=== PATIENT | female | born 1960 | race Asian ===

== ENCOUNTER 2016-12-07 12:13 | Emergency (ER) | payer OTHER ==
[~2016-12-07] VITALS: Ht 157.5 cm; Wt 56.8 kg
[2016-12-07 12:15] VITALS: TEMP 36.4; Ht 157.5 cm; Wt 56.8 kg
[2016-12-07] MEDS ORDERED: ADENOSINE IV SOLN 3 MG/ML 2 ML VIAL IV ONE (12:26)
[2016-12-07] MEDS ORDERED: ADENOSINE IV SOLN 3 MG/ML 2 ML VIAL IV STA ×2 (12:26)
[2016-12-07] MEDS ORDERED: SODIUM CHLORIDE 0.9% 1000ML 1,000 ML IV STA (12:26)
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
[2016-12-07 12:41] LABS: BASO % 0.8 %; BASO ABS # 0.03 K/uL (0-0.2); COMPLETE YES; EOS % 3.9 %; HEMATOCRIT 42.4 % (37-47); MEAN CELL VOLUME 89.6 fL (80-100); MEAN CORPUSCULAR HEMOGLOBIN 31.7 pg (25-34); MEAN CORPUSCULAR HGB CONC 35.4 g/dl (32-36); MEAN PLATELET VOLUME 10.9 fL (7.4-10.4); MONO % 14.1 %; NEUT % 34.2 %; PLATELET COUNT 194 K/uL (130-400); RED BLOOD COUNT 4.73 M/uL (4.2-5.4); WHITE BLOOD COUNT 3.62 K/uL (4.8-10.8)
[2016-12-07 12:43] VITALS: O2SAT 94
[2016-12-07 12:54] LABS: ALT/SGPT 34 U/L (12-78); AST/SGOT 22 U/L (15-37); BLOOD UREA NITROGEN 18 mg/dl (7-18); BUN/CREATININE RATIO 23.7 (10-20); CALCIUM 8.5 mg/dl (8.5-10.1); CARBON DIOXIDE 28 mmol/L (21-32); CHLORIDE 108 mmol/L (98-107); CREATININE 0.76 mg/dl (0.60-1.20); GLUCOSE 94 mg/dl (70-99); POTASSIUM 3.8 mmol/L (3.5-5.1); SODIUM 145 mmol/L (136-145)
[2016-12-07 13:00] LABS: ALKALINE PHOSPHATASE 87 U/L (45-117); CKMB/CK RATIO 0.8 (0-3.0)
--- NOTE | 2016-12-07 13:05 | DIAGNOSTIC IMAGING REPORT ---
CHEST ONE VIEW PORTABLE CLINICAL HISTORY: Chest pain. COMPARISON STUDY: Chest radiograph March 30, 2015. FINDINGS: Pacer pads overlie the chest. There is no pneumothorax or pleural effusion. No consolidation is identified. There is no evidence of pulmonary edema. Mild to moderate cardiomegaly is unchanged. IMPRESSION: No acute cardiopulmonary findings. Stable cardiomegaly. Electronically signed by: Gustavo Estrada M.D. 12/07/2016 1:03 PM Dictated Date/Time: 12/07/2016 1:02 PM
[2016-12-07 13:24] VITALS: BP 115/74; PULSE 56; O2SAT 99
[2016-12-16] MEDS ORDERED: BIOT1CAP4 PO (11:27)
[2016-12-16] MEDS ORDERED: OMEG100046 PO (11:28)
[2016-12-16] MEDS ORDERED: METO25TA56 PO (15:06)
== END 2016-12-07 13:38 | disposition home or self-care (01) ==
LOC: C.EDB 12:14 → C.EDA 13:38
DX: I47.1 Supraventricular tachycardia (principal); J32.9 Chronic sinusitis, unspecified; E87.6 Hypokalemia; Z79.899 Other long term (current) drug therapy; Z82.49 Family history of ischemic heart disease and other diseases of the circulatory system

== ENCOUNTER 2016-12-16 15:53 | Observation (INO) | payer OTHER ==
[~2016-12-16] VITALS: Ht 157.5 cm; Wt 55.6 kg
[~2016-12-16 15:53] MED LIST: BIOT1CAP4 PO; METO25TA56 PO; OMEG100046 PO
[2016-12-16] MEDS ORDERED: ONDANSETRON INJ 2 MG/ML 2 ML VIAL IV STA ×2 (16:44→18:23)
[2016-12-16] MEDS ORDERED: SODIUM CHLORIDE 0.9% 1000ML 1,000 ML IV STA (16:44)
[2016-12-16 16:54] LABS: BASO % 0.5 %; BASO ABS # 0.02 K/uL (0-0.2); COMPLETE YES; EOS % 0.5 %; HEMATOCRIT 38.1 % (37-47); IG% 0.3 %; LYMPH % 29.9 %; LYMPH ABS # 1.17 K/uL (1.2-3.4); MEAN CELL VOLUME 86.8 fL (80-100); MEAN CORPUSCULAR HGB CONC 35.7 g/dl (32-36); MEAN PLATELET VOLUME 10.1 fL (7.4-10.4); MONO % 8.7 %; NEUT % 60.1 %; PLATELET COUNT 191 K/uL (130-400); RED BLOOD COUNT 4.39 M/uL (4.2-5.4); WHITE BLOOD COUNT 3.91 K/uL (4.8-10.8)
[2016-12-16 17:08] LABS: BUN/CREATININE RATIO 22.3 (10-20); CALCIUM 8.8 mg/dl (8.5-10.1); CREATININE 0.65 mg/dl (0.60-1.20); MAGNESIUM 2.4 mg/dl (1.8-2.4); POTASSIUM 3.5 mmol/L (3.5-5.1)
[2016-12-16 17:16] LABS: PARTIAL THROMBOPLASTIN RATIO 0.9; PROTHROMBIN TIME (PATIENT) 10.8 SECONDS (9.0-12.0)
[2016-12-16 17:18] LABS: THYROID STIMULATING HORMONE 1.55 uIu/ml (0.300-4.500)
--- NOTE | 2016-12-16 18:08 | DIAGNOSTIC IMAGING REPORT ---
LUMBAR SPINE 5 VIEWS HISTORY: Low back pain. fall eval for fx COMPARISON: Lumbar spine 03/24/2014. FINDINGS: There is no fracture. No subluxation. Disc spaces are preserved. There are small endplate osteophytes within the lumbar spine. IMPRESSION: No fracture or subluxation within the lumbar spine. Electronically signed by: Brian Cristobal M.D. 12/16/2016 6:07 PM Dictated Date/Time: 12/16/2016 6:05 PM
--- NOTE | 2016-12-16 18:09 | DIAGNOSTIC IMAGING REPORT ---
SACRUM/COCCYX 3 VIEWS HISTORY: Sacral pain. fall eval for fx COMPARISON: None. FINDINGS: There is no fracture or dislocation. Soft tissues are unremarkable. No radiopaque foreign bodies. Mild degenerative changes within the bilateral sacroiliac joints. IMPRESSION: No fractures within the sacrum/coccyx. Electronically signed by: Brian Cristobal M.D. 12/16/2016 6:08 PM Dictated Date/Time: 12/16/2016 6:07 PM
--- NOTE | 2016-12-16 18:10 | DIAGNOSTIC IMAGING REPORT ---
PELVIS 1 OR 2 VIEW ROUTINE CLINICAL HISTORY: fall eval for fx. Pelvic pain. COMPARISON STUDY: None. FINDINGS: No fracture or dislocation within the pelvis or hips. The sacrum appears intact. Cartilage spaces are maintained for age within the hips. Mild degenerative changes within the bilateral sacroiliac joints. IMPRESSION: No fracture or dislocation within the pelvis or hips. Electronically signed by: Brian Cristobal M.D. 12/16/2016 6:09 PM Dictated Date/Time: 12/16/2016 6:08 PM
--- NOTE | 2016-12-16 18:11 | DIAGNOSTIC IMAGING REPORT ---
CHEST ONE VIEW PORTABLE HISTORY: Fall. Chest pain. COMPARISON: Chest 12/07/2016. FINDINGS: The heart remains mildly enlarged. No focal lung consolidations to suggest pneumonia. No evidence for pulmonary edema. No pleural effusions. No pneumothorax. No rib fractures identified. IMPRESSION: No acute process. Electronically signed by: Brian Cristobal M.D. 12/16/2016 6:10 PM Dictated Date/Time: 12/16/2016 6:09 PM
[2016-12-16] MEDS ORDERED: ACETAMINOPHEN 325 MG TAB PO PRN (19:15)
[2016-12-16] MEDS ORDERED: ONDANSETRON INJ 2 MG/ML 2 ML VIAL IV PRN (19:15)
[2016-12-16] MEDS ORDERED: IV FLUIDS COMPLETED PRN (19:30)
--- NOTE | 2016-12-16 19:30 | History and Physical ---
History & Physical Date & Time of Service: Dec 16, 2016 at 19:14 Chief Complaint: Dizziness, Vomiting Primary Care Physician: Anton Davis M.D. History of Present Illness Source: patient, family, clinic records, hospital records Patient seen and examined. 56 year old female with PMHx of SVT presents to the ED complaining of dizziness x 1 day. Patient reports that she had a mechanical fall about a week ago and since then has had sharp severe tailbone pain. She reports she has been taking ibuprofen for this but last night that did not help with the pain so she took tramadol and a muscle relaxer. Shortly after she started to feel dizzy. She reports this was worse upon standing but she has been able to walk without any issues and does not need to hold on to anything for balance. She reports she also felt her heart fluttering and when this happens she gets some chest pressure. Today she woke up and still had some dizziness as well as nausea and 3 episodes of vomiting. She states that she feels like she does after taking a long car ride. She denies fevers, chills, head trauma, LOC, URI symptoms, tinnitus, vision changes, chest pain, SOB, diarrhea, dysuria, calf pain and edema. Patient has a history of SVT and is on metoprolol d/t sinus bradycardia the BB is very low dose but the patient has multiple episodes of SVT. She sees Dr. Briseno for SVT. She was seen in this ED last week for SVT and received adenosine. In the ED today patient was bradycardic around 40, BP was mildly elevated, Darryl were negative, EKG was without block, TSH was normal. She received IVFs, and Zofran and reports feeling a little better. She will be observed for further workup and treatment. Past Medical/Surgical History Medical Problems: (1) Fever Status: Resolved (2) Hepatitis B carrier Status: Chronic (3) SVT (supraventricular tachycardia) Status: Chronic Surgical Problems: (1) H/O colonoscopy Status: Chronic (2) Hx of appendectomy Status: Chronic Family History Diabetes mellitus Hypertension Social History Smoking Status: Never Smoker Alcohol Use: none Marital Status: Housing status: lives with family Occupational Status: employed Allergies Coded Allergies: No Known Allergies (Unverified , 12/16/16) Home Medications Scheduled Biotin (Biotin), 2,500 MCG PO DAILY Metoprolol Tartrate (Lopressor) (Lopressor), 12.5 MG PO BID Multivitamin (Multivitamin), 1 TABLET PO DAILY [place]-3 Fatty Acids ([place] 3), 1 CAP PO DAILY Review of Systems See above for pertinent positives & negatives. A total of 10 systems reviewed and were otherwise negative. Physical Exam Vital Signs Date Time Temp Pulse Resp B/P Pulse Ox O2 Delivery O2 Flow Rate FiO2 12/16/16 19:00 49 18 166/81 95 Room Air 12/16/16 18:18 46 18 161/72 97 Room Air 12/16/16 17:28 40 16 147/71 100 Room Air 12/16/16 17:00 49 16 136/77 100 Nasal Cannula 2.0 12/16/16 16:50 96 Nasal Cannula 2.0 12/16/16 16:40 Room Air 12/16/16 16:37 46 16 159/79 12/16/16 16:33 44 12/16/16 16:00 36.3 56 16 138/76 98 General Appearance: + pertinent finding (Pleasant WD/WN 56 year old female lying inbed in NAD with at bedside ) Head: normocephalic, atraumatic Eyes: PERRL, EOMI, sclerae normal, + pertinent finding (no nystagmus ) ENT: hearing grossly normal, pharynx normal Neck: supple, no JVD, trachea midline Respiratory/Chest: chest non-tender, lungs clear, normal breath sounds, no respiratory distress, no accessory muscle use Cardiovascular: no edema, no gallop, no JVD, no murmur, normal peripheral pulses, + bradycardia (40s, regular ) Abdomen/GI: normal bowel sounds, non tender, soft Back: normal inspection, no muscle spasm Extremities/Musculoskelatal: no calf tenderness, normal capillary refill, no pedal edema Neurologic/Psych: + pertinent finding (A&Ox3, no focal deficits ) Skin: normal color, warm/dry, no rash Lymphatic: no adenopathy Diagnostics Laboratory Results Results Past 24 Hours Test 12/16/16 16:40 12/16/16 16:47 12/16/16 19:04 Range/Units White Blood Count 3.91 4.8-10.8 K/uL Red Blood Count 4.39 4.2-5.4 M/uL Hemoglobin 13.6 12.0-16.0 g/dL Hematocrit 38.1 37-47 % Mean Corpuscular Volume 86.8 80-100 fL Mean Corpuscular Hemoglobin 31.0 25-34 pg Mean Corpuscular Hemoglobin Concent 35.7 32-36 g/dl Platelet Count 191 130-400 K/uL Mean Platelet Volume 10.1 7.4-10.4 fL Neutrophils (%) (Auto) 60.1 % Lymphocytes (%) (Auto) 29.9 % Monocytes (%) (Auto) 8.7 % Eosinophils (%) (Auto) 0.5 % Basophils (%) (Auto) 0.5 % Neutrophils # (Auto) 2.35 1.4-6.5 K/uL Lymphocytes # (Auto) 1.17 1.2-3.4 K/uL Monocytes # (Auto) 0.34 0.11-0.59 K/uL Eosinophils # (Auto) 0.02 0-0.5 K/uL Basophils # (Auto) 0.02 0-0.2 K/uL RDW Standard Deviation 38.0 36.4-46.3 fL RDW Coefficient of Variation 11.9 11.5-14.5 % Immature Granulocyte % (Auto) 0.3 % Immature Granulocyte # (Auto) 0.01 0.00-0.02 K/uL Prothrombin Time 10.8 9.0-12.0 SECONDS Prothromb Time International Ratio 1.0 0.9-1.1 Activated Partial Thromboplast Time 23.7 21.0-31.0 SECONDS Partial Thromboplastin Ratio 0.9 Sodium Level 141 136-145 mmol/L Potassium Level 3.5 3.5-5.1 mmol/L Chloride Level 104 98-107 mmol/L Carbon Dioxide Level 26 21-32 mmol/L Anion Gap 11.0 3-11 mmol/L Blood Urea Nitrogen 15 7-18 mg/dl Creatinine 0.65 0.60-1.20 mg/dl Est Creatinine Clear Calc Drug Dose 75.5 ml/min Estimated GFR () 114.2 Estimated GFR (Non- 98.6 BUN/Creatinine Ratio 22.3 10-20 Random Glucose 117 70-99 mg/dl Calcium Level 8.8 8.5-10.1 mg/dl Magnesium Level 2.4 1.8-2.4 mg/dl Thyroid Stimulating Hormone (TSH) 1.550 0.300-4.500 uIu/ml Free Thyroxine 1.16 0.80-1.60 ng/dl Bedside Troponin I 0.000 0-0.045 ng/ml Diagnostic Radiology CXR Per radiologist read: IMPRESSION: No acute process. COCCYX XR Per radiologist read: IMPRESSION: No fractures within the sacrum/coccyx. LSPINE XR Per radiologist read: IMPRESSION: No fracture or subluxation within the lumbar spine. PELVIC XR Per radiologist read: IMPRESSION: No fracture or dislocation within the pelvis or hips. EKG Sinus Bradycardia 44 BPM, QTc 427 Impression Assessment and Plan 56 year old female with history of SVT presents to the ED complaining of dizziness, nausea, vomiting, since last night after taking tramadol and a muscle relaxer for low back/coccyx pain. Patient noted to be bradycardic in ED SINUS BRADYCARDIA -observation in tele -Is on a BB for SVT. ? tachybrady syndrome -monitor in tele for arrhythmia -check Lyme titer -Serial Darryl, EKGs -check echo cardiogram -cardiology consult in AM follows with Dr. Briseno per outpatient record patient has been reluctant to have EPS/Ablation -hold BB for now -CBC, PRP, Mg in AM -gentle IVF hydration DIZZINESS, NAUSEA, VOMITING -states she feels "car sick" -? secondary to muscle relaxers, pain medication, dehydration versus secondary to bradycardia, versus orthostatic hypotension and other etiologies -Gentle IVF hydration -Zofran prn -will hold off on Antivert as this could cause palpitations/arrhythmia -check orthostatic VS H/O SVT -currently sinus bradycardia ? tachybrady syndrome -hold BB for now -monitor in tele MECHANICAL FALL -no acute lumbar, sacral or pelvic fracture -Tylenol prn for now as tramadol may have caused patients symptoms -consider NSAIDs once cardiac enzymes are negative HEPATITIS B CARRIER -per outpatient record DVT PROPHYLAXIS: Sq Lovenox CODE STATUS: FULL CODE DISPO:observation pending further workup Patient seen in collaboration with Dr. Torres Agree with above H and P. 56F with hx of SVT on Lopressor and follows with presents with dizziness and nausea and found to be bradycardic. Patient says she fell about a week ago and has severe back pain.She took ibuprofen but it was not helping and her gave some medicine from [place]. Since yesterday she has some abdominal pain and nausea. But when she got up today she was very dizzy and found her heart rate low on her BP machine and decided to come to Er. Still has back pain. Denies chest pain or sob. Afebrile. No cough. 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 Tachybrady syndrome? will hold Lopressor monitor in tele serial CE cardiology consult Back pain s/p fall pain control VTE Prophylaxis VTE Risk Assessment Done? Y/N: Yes Risk Level: Moderate
[2016-12-16 20:08] LABS: LYME DISEASE AB IGG NEG (NEG); LYME DISEASE AB IGM NEG (NEG)
--- NOTE | 2016-12-16 20:16 | EMERGENCY ROOM VISIT NOTE ---
History Report prepared by Ronnie: Santa Myers Under the Supervision of: Dr. Brian Anderson M.D. First contact with patient: 16:30 Chief Complaint: VOMITING Stated Complaint: DIZZINESS, VOMITING Nursing Triage Summary: uncomfortable in her stomache, dizzy last night this am she had vomitting had a fall on thursday and slipped fell on oily floor had + loc had back ache and took ibprofen and it didn't help and then took hebrew med that "was strong for me" pt able to speak irish History of Present Illness The patient is a 56 year old female who presents to the Emergency Room with complaints of persistent dizziness since last night. She also complains of intermittent chest pressure and palpitations since last night, and vomiting this morning. Currently, she does not have any chest pressure. She does feel slightly short of breath. Per patient's , the patient slipped on the floor while she was cooking about a week ago and fell on her backside. She did not hit her head or lose consciousness. She had some back pain initially but felt better about 30 minutes later. The following day, she felt sore so she took ibuprofen without relief. Last night, she took a tramadol and muscle relaxer for her back pain. Her notes that she was in the emergency room 9 days ago for dizziness and was found to be in SVT. She was treated successfully with adenosine and discharged home. Denies headache, diarrhea, or other complaints. Source of History: patient Onset: last night Position: other (global) Quality: other (dizzy) Timing: other (persistent) Associated Symptoms: + SOB, + vomiting, No diarrhea, No headache Note: Other symptoms: chest pressure, palpitations Review of Systems See HPI for pertinent positives & negatives. A total of 10 systems reviewed and were otherwise negative. Past Medical & Surgical Medical Problems: (1) Dizziness (2) Fever (3) Hepatitis B carrier (4) Sinus bradycardia (5) SVT (supraventricular tachycardia) Surgical Problems: (1) H/O colonoscopy (2) Hx of appendectomy Family History Diabetes mellitus Hypertension Social History Smoking Status: Never Smoker Alcohol Use: none Marital Status: Housing Status: lives with family Occupation Status: employed Current/Historical Medications Scheduled Biotin (Biotin), 2,500 MCG PO DAILY Metoprolol Tartrate (Lopressor) (Lopressor), 12.5 MG PO BID Multivitamin (Multivitamin), 1 TABLET PO DAILY [place]-3 Fatty Acids ([place] 3), 1 CAP PO DAILY Allergies Coded Allergies: No Known Allergies (Unverified , 12/16/16) Physical Exam Vital Signs Date Time Temp Pulse Resp B/P Pulse Ox O2 Delivery O2 Flow Rate FiO2 12/16/16 20:09 48 12/16/16 19:00 49 18 166/81 95 Room Air 12/16/16 18:18 46 18 161/72 97 Room Air 12/16/16 17:28 40 16 147/71 100 Room Air 12/16/16 17:00 49 16 136/77 100 Nasal Cannula 2.0 12/16/16 16:50 96 Nasal Cannula 2.0 12/16/16 16:40 Room Air 12/16/16 16:37 46 16 159/79 12/16/16 16:33 44 12/16/16 16:00 36.3 56 16 138/76 98 Physical Exam Constitutional: Vital signs reviewed. Eyes: Pupils are equal round reactive to light. Conjunctiva are noninjected. ENT: Pharynx is clear without erythema or exudate. Mucous membranes are moist. Neck supple without meningeal signs. Respiratory: Clear to auscultation bilaterally. Breath sounds are equal bilaterally. Cardiovascular: Bradycardic rate at 44 and regular rhythm. No rubs or gallops. GI: Soft, nondistended and nontender. Bowel sounds are present. Musculoskeletal: No peripheral edema. No lower extremity tenderness. Tenderness to the mid-sacrum. No hip tenderness. Integumentary: No cyanosis. Neurological: The patient is awake and alert. No focal deficits. Psychiatric: Normal affect. Medical Decision & Procedures ER Provider Diagnostic Interpretation: Radiology results as stated below per my review and the radiologist's interpretation: PELVIS 1 OR 2 VIEW ROUTINE CLINICAL HISTORY: fall eval for fx. Pelvic pain. COMPARISON STUDY: None. FINDINGS: No fracture or dislocation within the pelvis or hips. The sacrum appears intact. Cartilage spaces are maintained for age within the hips. Mild degenerative changes within the bilateral sacroiliac joints. IMPRESSION: No fracture or dislocation within the pelvis or hips. Electronically signed by: Brian Cristobal M.D. 12/16/2016 6:09 PM Dictated Date/Time: 12/16/2016 6:08 PM LUMBAR SPINE 5 VIEWS HISTORY: Low back pain. fall eval for fx COMPARISON: Lumbar spine 03/24/2014. FINDINGS: There is no fracture. No subluxation. Disc spaces are preserved. There are small endplate osteophytes within the lumbar spine. IMPRESSION: No fracture or subluxation within the lumbar spine. Electronically signed by: Brian Cristobal M.D. 12/16/2016 6:07 PM Dictated Date/Time: 12/16/2016 6:05 PM SACRUM/COCCYX 3 VIEWS HISTORY: Sacral pain. fall eval for fx COMPARISON: None. FINDINGS: There is no fracture or dislocation. Soft tissues are unremarkable. No radiopaque foreign bodies. Mild degenerative changes within the bilateral sacroiliac joints. IMPRESSION: No fractures within the sacrum/coccyx. Electronically signed by: Brian Cristobal M.D. 12/16/2016 6:08 PM Dictated Date/Time: 12/16/2016 6:07 PM CHEST ONE VIEW PORTABLE HISTORY: Fall. Chest pain. COMPARISON: Chest 12/07/2016. FINDINGS: The heart remains mildly enlarged. No focal lung consolidations to suggest pneumonia. No evidence for pulmonary edema. No pleural effusions. No pneumothorax. No rib fractures identified. IMPRESSION: No acute process. Electronically signed by: Brian Cristobal M.D. 12/16/2016 6:10 PM Dictated Date/Time: 12/16/2016 6:09 PM Laboratory Results 12/16/16 16:40 Red Blood Count 4.39, Mean Corpuscular Volume 86.8, Mean Corpuscular Hemoglobin 31.0, Mean Corpuscular Hemoglobin Concent 35.7, Mean Platelet Volume 10.1, Neutrophils (%) (Auto) 60.1, Lymphocytes (%) (Auto) 29.9, Monocytes (%) (Auto) 8.7, Eosinophils (%) (Auto) 0.5, Basophils (%) (Auto) 0.5, Neutrophils # (Auto) 2.35, Lymphocytes # (Auto) 1.17, Monocytes # (Auto) 0.34, Eosinophils # (Auto) 0.02, Basophils # (Auto) 0.02 12/16/16 16:40 Test 12/16/16 16:40 12/16/16 16:47 White Blood Count 3.91 K/uL (4.8-10.8) Red Blood Count 4.39 M/uL (4.2-5.4) Hemoglobin 13.6 g/dL (12.0-16.0) Hematocrit 38.1 % (37-47) Mean Corpuscular Volume 86.8 fL (80-100) Mean Corpuscular Hemoglobin 31.0 pg (25-34) Mean Corpuscular Hemoglobin Concent 35.7 g/dl (32-36) Platelet Count 191 K/uL (130-400) Mean Platelet Volume 10.1 fL (7.4-10.4) Neutrophils (%) (Auto) 60.1 % Lymphocytes (%) (Auto) 29.9 % Monocytes (%) (Auto) 8.7 % Eosinophils (%) (Auto) 0.5 % Basophils (%) (Auto) 0.5 % Neutrophils # (Auto) 2.35 K/uL (1.4-6.5) Lymphocytes # (Auto) 1.17 K/uL (1.2-3.4) Monocytes # (Auto) 0.34 K/uL (0.11-0.59) Eosinophils # (Auto) 0.02 K/uL (0-0.5) Basophils # (Auto) 0.02 K/uL (0-0.2) RDW Standard Deviation 38.0 fL (36.4-46.3) RDW Coefficient of Variation 11.9 % (11.5-14.5) Immature Granulocyte % (Auto) 0.3 % Immature Granulocyte # (Auto) 0.01 K/uL (0.00-0.02) Prothrombin Time 10.8 SECONDS (9.0-12.0) Prothromb Time International Ratio 1.0 (0.9-1.1) Activated Partial Thromboplast Time 23.7 SECONDS (21.0-31.0) Partial Thromboplastin Ratio 0.9 Anion Gap 11.0 mmol/L (3-11) Est Creatinine Clear Calc Drug Dose 75.5 ml/min Estimated GFR () 114.2 Estimated GFR (Non- 98.6 BUN/Creatinine Ratio 22.3 (10-20) Calcium Level 8.8 mg/dl (8.5-10.1) Magnesium Level 2.4 mg/dl (1.8-2.4) Thyroid Stimulating Hormone (TSH) 1.550 uIu/ml (0.300-4.500) Free Thyroxine 1.16 ng/dl (0.80-1.60) Lyme Disease IgG Antibody NEG (NEG) Lyme Disease IgM Antibody NEG (NEG) Bedside Troponin I 0.000 ng/ml (0-0.045) Laboratory results as reviewed by me. Medications Administered Medications (Trade) Dose Ordered Sig/Fredo Route Start Time Stop Time Status Last Admin Dose Admin Sodium Chloride (Nss 1000ml) 1,000 ml @ 999 mls/hr Q1H1M STAT IV 12/16/16 16:44 12/16/16 17:44 DC 12/16/16 17:10 999 MLS/HR Ondansetron HCl (Zofran Inj) 4 mg NOW STAT IV 12/16/16 16:44 12/16/16 16:47 DC 12/16/16 17:10 4 MG Ondansetron HCl (Zofran Inj) 4 mg NOW STAT IV 12/16/16 18:23 12/16/16 18:24 DC 12/16/16 18:46 4 MG ECG Indication: palpitations Rate (beats per minute): 44 Rhythm: sinus bradycardia Findings: Q waves (Inferior), other (nonspecific T wave changes) ED Course 1635: The patient was evaluated in room B11. A complete history and physical exam was performed. 1644: Ordered Zofran Inj 4 mg IV, NSS 1000 ml @ 999 mls/hr IV. 1807: I reassessed the patient. She was feeling a little better after fluids. Her heart rate is 39-40 but she is hypertensive. She did not take her metoprolol this morning. She agrees to hospitalization. 1813: I discussed the case with Tomi Tafoya PA-C - [facility]. The patient will be evaluated for further management. 1823: Ordered Zofran Inj 4 mg IV. Medical Decision This is a 56-year-old female who presents with dizziness, vomiting, back pain and chest pain. Differential diagnosis includes unstable angina, UT, compression fracture, coccyx fracture, dysrhythmia, metabolic derangement. I did perform a limited focused review of portions of the patient's old chart on the electronic medical record. She was seen here on the for dizziness and SVT. She was treated with Adenosine. I did evaluate the patient as noted above. The patient is presenting with chest pressure intermittently since yesterday. She also feels lightheaded. IV access was established. The patient was placed on a continuous surveillance monitor. The patient is bradycardic. She is slightly hypertensive and states that she did not take her beta prince this morning. I did treat her with Zofran and normal saline IV. I did order and personally review the patient's 12 -lead EKG and x-rays as described above. She has sinus bradycardia on 12-lead EKG. Her x-rays do not show any evidence of fractures. I did order and review the patient's blood work as noted in the electronic medical record. Troponin is negative. I did reassess the patient. She continues to have bradycardia but remains hypertensive and so I did not feel she needed any acute intervention at this time such as atropine. Especially in the setting of recent chest pressure which may be cardiac in nature. I did recommend hospitalization for further evaluation of her symptoms. She was given additional Zofran IV for her continued nausea. I did discuss case with the hospitalist and case operator. Consults Time Called: 1806 Consulting Physician: [facility] Returned Call: [phone] I discussed the case with her. The patient will be evaluated for further management. Impression Primary Impression: Symptomatic bradycardia Additional Impressions: Acute chest pain Low back pain Fall Scribe Attestation The scribe's documentation has been prepared under my direct and personally reviewed by me in its entirety. I confirm that the note above accurately reflects all work, treatment, procedures, and medical decision making performed by me. Departure Information Dispostion Being Evaluated By Hospitalist Referrals Anton Davis M.D. (PCP) Patient Instructions My [facility] Problem Qualifiers
[2016-12-16] MEDS ORDERED: MULT-506 PO (20:53)
[2016-12-16 21:00] VITALS: BP 144/77; PULSE 43; TEMP 36.9; O2SAT 99
[2016-12-16] MEDS ORDERED: ENOXAPARIN 40 MG/0.4 ML SYR SC SCH (22:00)
[2016-12-16] MEDS: NSS + 20MEQ KCL 1000ML 1,000 ML IV SCH (22:40)
[2016-12-16 23:17] VITALS: BP 150/76; PULSE 50; TEMP 36.6; O2SAT 95
[2016-12-17] VITALS: O2SAT 96; Ht 157.5 cm; Wt 55.6 kg
[2016-12-17 05:21] LABS: HEMATOCRIT 35.5 % (37-47); MEAN CELL VOLUME 87.2 fL (80-100); MEAN CORPUSCULAR HGB CONC 34.4 g/dl (32-36); MEAN PLATELET VOLUME 10.3 fL (7.4-10.4); PLATELET COUNT 194 K/uL (130-400); RED BLOOD COUNT 4.07 M/uL (4.2-5.4); WHITE BLOOD COUNT 5.07 K/uL (4.8-10.8)
[2016-12-17 05:23] VITALS: BP 133/75; PULSE 58; TEMP 36.7; O2SAT 94
[2016-12-17 05:47] LABS: BLOOD UREA NITROGEN 12 mg/dl (7-18); BUN/CREATININE RATIO 18.7 (10-20); CALCIUM 7.8 mg/dl (8.5-10.1); CARBON DIOXIDE 27 mmol/L (21-32); CHLORIDE 109 mmol/L (98-107); CREATININE 0.64 mg/dl (0.60-1.20); GLUCOSE 90 mg/dl (70-99); MAGNESIUM 2.3 mg/dl (1.8-2.4); POTASSIUM 3.7 mmol/L (3.5-5.1); SODIUM 143 mmol/L (136-145)
[2016-12-17 05:53] LABS: CHOLESTEROL 175 mg/dl (0-200); CHOLESTEROL/HDL RATIO 3.2; HDL CHOLESTEROL 55 mg/dl; LDL CHOLESTEROL CALCULATED 104 mg/dl; TRIGLYCERIDES 82 mg/dl (0-150); VERY LOW DENSITY LIPOPROT CALC 16 mg/dl
[2016-12-17 07:50] VITALS: BP 147/80; PULSE 50; TEMP 36.7; O2SAT 95
--- NOTE | 2016-12-17 11:02 | Cardiology Consultation ---
Cardiology Consultation Date of Consultation: Dec 17, 2016 Requesting Physician: Lele Attending Rougher For Cement: Maggy (Jae Dobbs PA-C) History of Present Illness Mrs. Stanton is a 56 year old female who is being seen at the request of Dr. Torres. Reason for consultation is bradycardia. Mrs. Stanton carries a history of chronic resting bradycardia and symptomatic paroxysmal supraventricular tachycardia. She has recently been evaluated by Electrophysiology and is scheduled for an EP study with probable ablation at [facility] on January 06, 2017. Mrs. Stanton notes discomfort in her tailbone the day before yesterday. This has bothered her intermittently since a mechanical fall approximately one week ago. She notes taking 400 mg of ibuprofen without benefit. Five hours later she took one table of Mulex, a muscle relaxer from [employer], and one tablet of Ultracet from [employer]. Approximately two hours have taking the Mulex and Ultracet she developed nausea and dizziness. She was able to make it through the night, waking in the morning with ongoing nausea, emesis x 3, dizziness, mild palpitations. No loss of consciousness. In the ER she was found to be bradycardic around 40 bpm and mildly hypertensive. EKG on 16-DEC-2016 @ 16:34: 45 revealed marked sinus bradycardia with marked sinus arrhythmia at 44 bpm with possible left atrial enlargement and nonspecific T wave abnormality. Cardiac enzymes were/are negative. She received IVFs and Zofran with improvement and was admitted for further observation. This morning she feels well, back to her norm. No further nausea or dizziness. Review of her continuous cafeteria monitor reveals sinus bradycardia down to 40 bpm with short salves of SVT. Currently her heart rate is 55 bpm. Resting echocardiography is pending. (Jae Dobbs PA-C) History Past Medical/Surgical History: Paroxysmal supraventricular tachycardia Chronic resting bradycardia Chronic hepatitis B Appendectomy Colonoscopy with polypectomy Family History: Not notable for coronary artery disease. Father with hypertension. Mother at 63 with liver failure. Two siblings. Social History: Nonsmoker. No alcohol. . Two children. One daughter is a Pharmacist at [employer]. One daughter is a nurse at [employer] in [place]. Homemaker . (Jae Dobbs PA-C) Review Of Systems Complete review of systems is as stated above, negative, or noncontributory. (Jae Dobbs PA-C) Allergies Coded Allergies: No Known Allergies (Unverified , 12/16/16) Medications Reported Home Medications Medications Dose Route/Sig Max Daily Dose Days Date Category [place] 3 ([place]-3 Fatty Acids) 1 Cap Cap 1 Cap PO DAILY 09/27/16 Reported Biotin 2,500 Mcg Cap 2,500 Mcg PO DAILY 09/27/16 Reported Lopressor (Metoprolol Tartrate) 25 Mg Tab 12.5 Mg PO BID 10/19/15 Reported Multivitamin (Multivitamins) Tab 1 Tablet PO DAILY 04/16/12 Reported (Jae Dobbs PA-C) Physical Exam Vital Signs (Last 8hrs): Last 8 Hrs Date Time Temp Pulse Resp B/P Pulse Ox O2 Delivery O2 Flow Rate FiO2 12/17/16 07:50 36.7 50 18 147/80 95 Room Air 12/17/16 05:23 36.7 58 16 133/75 94 Room Air 12/17/16 04:00 Room Air General Appearance: Alert and Oriented x3. NAD. Head: Normocephalic Atraumatic. Eyes: PER, EOMI, conjunctiva and sclera clear Neck: Supple. No carotid bruits noted. No JVD. No HJD. Respiratory: Breath sounds clear to auscultation bilaterally. No w/r/r. Cardiovascular: Regular, 50 bpm. There is a soft systolic murmur heard best at the left lower sternal border. No diastolic murmur. No rub. PMI is nondisplaced. Abdomen: +BS. Soft. Nontender. Extremities: No edema, no clubbing or cyanosis. Distal pulses 2/4 bilaterally. Neuro: No focal deficits. Psychiatric: Normal affect. (Jae Dobbs PA-C) Data Last 24 Hours Test 12/16/16 16:40 12/16/16 16:47 12/16/16 22:25 12/17/16 04:57 White Blood Count 3.91 K/uL 5.07 K/uL Red Blood Count 4.39 M/uL 4.07 M/uL Hemoglobin 13.6 g/dL 12.2 g/dL Hematocrit 38.1 % 35.5 % Mean Corpuscular Volume 86.8 fL 87.2 fL Mean Corpuscular Hemoglobin 31.0 pg 30.0 pg Mean Corpuscular Hemoglobin Concent 35.7 g/dl 34.4 g/dl Platelet Count 191 K/uL 194 K/uL Mean Platelet Volume 10.1 fL 10.3 fL Neutrophils (%) (Auto) 60.1 % Lymphocytes (%) (Auto) 29.9 % Monocytes (%) (Auto) 8.7 % Eosinophils (%) (Auto) 0.5 % Basophils (%) (Auto) 0.5 % Neutrophils # (Auto) 2.35 K/uL Lymphocytes # (Auto) 1.17 K/uL Monocytes # (Auto) 0.34 K/uL Eosinophils # (Auto) 0.02 K/uL Basophils # (Auto) 0.02 K/uL RDW Standard Deviation 38.0 fL 39.2 fL RDW Coefficient of Variation 11.9 % 12.1 % Immature Granulocyte % (Auto) 0.3 % Immature Granulocyte # (Auto) 0.01 K/uL Prothrombin Time 10.8 SECONDS Prothromb Time International Ratio 1.0 Activated Partial Thromboplast Time 23.7 SECONDS Partial Thromboplastin Ratio 0.9 Sodium Level 141 mmol/L 143 mmol/L Potassium Level 3.5 mmol/L 3.7 mmol/L Chloride Level 104 mmol/L 109 mmol/L Carbon Dioxide Level 26 mmol/L 27 mmol/L Anion Gap 11.0 mmol/L 7.0 mmol/L Blood Urea Nitrogen 15 mg/dl 12 mg/dl Creatinine 0.65 mg/dl 0.64 mg/dl Est Creatinine Clear Calc Drug Dose 75.5 ml/min 76.7 ml/min Estimated GFR () 114.2 114.8 Estimated GFR (Non- 98.6 99.1 BUN/Creatinine Ratio 22.3 18.7 Random Glucose 117 mg/dl 90 mg/dl Calcium Level 8.8 mg/dl 7.8 mg/dl Magnesium Level 2.4 mg/dl 2.3 mg/dl Thyroid Stimulating Hormone (TSH) 1.550 uIu/ml Free Thyroxine 1.16 ng/dl Lyme Disease IgG Antibody NEG Lyme Disease IgM Antibody NEG Bedside Troponin I 0.000 ng/ml Total Creatine Kinase 63 U/L 55 U/L Creatine Kinase MB 0.6 ng/ml < 0.5 ng/ml Creatine Kinase MB Ratio 1.0 Troponin I < 0.015 ng/ml < 0.015 ng/ml Triglycerides Level 82 mg/dl Cholesterol Level 175 mg/dl HDL Cholesterol 55 mg/dl LDL Cholesterol, Calculated 104 mg/dl VLDL Cholesterol, Calculated 16 mg/dl Cholesterol/HDL Ratio 3.2 Test 12/17/16 07:41 Bedside Glucose 84 mg/dl Admission CXR showed no acute process per radiological interpretation Coccyx x-ray was negative for fracture per radiological interpretation Lspine x-ray showed no fracture or subluxation within the lumbar spine per radiological interpretation. Pelvic x-ray showed no fracture or dislocation within the pelvis or hips per radiological interpretation. Admission EKG: See above EKG dated and timed 17-DEC-2016 @ 07:31:03: Sinus bradycardia at 48 bpm. Nonspecific T wave abnormality. When compared with ECG of 16-DEC-2016 16:34, no significant change was found Telemetry reviewed: See above TTE: Pending (Jae Dobbs PA-C) Assessment & Plan 56 year old female admitted with nausea, vomiting, and dizziness after taking Mulex and Ultracet from [place]. Her presenting symptoms have resolved. EKG's are without acute changes. Cardiac enzymes are negative x 2. TTE is pending. Patient carries a history of chronic resting bradycardia (Cardionet monitoring in the Fall of 2015 revealed periods of marked sinus bradycardia with mild pauses) and symptomatic paroxysmal supraventricular tachycardia requiring ER evaluation and Adenosine administration last on 12/07/2016. She is prescribed metoprolol tartrate 12.5 mg twice a day and is scheduled for an EP study and probable ablation on January 06, 2017. Recommend proceeding with the EP study and ablation, discontinuing metoprolol post ablation given her medication intolerance and debilitating symptoms. She is aware of the possible need for future permanent dual chamber pacemaker implantation. Further recommendations pending TTE interpretation, evaluation by Dr. Winter, and her ongoing hospitalization. (Jae Dobbs PA-C) CARDIOLOGY ATTENDING ADDENDUM: The patient was seen and personally examined. Agree with Jae Dobbs PA-C's findings and plans as documented above with additions as below. Pt feeling better. Stable sinus bradycardia -unchanged, but do not think this was cause her symptoms. Presentation was from the muscle relaxant and pain medication. Pt had last echo in 2013. Pt stable for discharge. Will cancel echo. DC on metoprolol 12.5 mg BID, keep appointment for ablation. plan to DC metoprolol post ablation. (Bakari Winter,Lacey.O.)
[2016-12-17] MEDS: NSS + 20MEQ KCL 1000ML 1,000 ML IV SCH (11:05)
[2016-12-17 11:56] VITALS: BP 124/65; PULSE 57; TEMP 36.9; O2SAT 92
--- NOTE | 2016-12-17 12:37 | Progress Note ---
Internal Med Progress Note Date of Service: Dec 17, 2016. Provider Documentation: SUBJECTIVE: Patient is feeling much better today No more vomiting or nausea. No palpitations, dizziness, syncope No fever, chills,cough, abdominal pain, diarrhea Tele- HR down to 40s with mostly 50s and few short salves of SVT OBJECTIVE: Vital Signs-as noted below Exam: General-AAOX3, no distress Neck-Supple, No jvd Lungs-AEBE, no wheezing, crackles Heart-S1, S2 normal, no murmurs Abdomen-Soft, non tender, non distended, BS present Extremities-No edema Neuro-AAOX 3, No focal deficits Lab data as noted below. ASSESSMENT & PLAN: 56 year old female with history of Chronic resting bradycardia/ SVT presents to the ED complaining of dizziness, nausea, vomiting, since last night after taking tramadol and a muscle relaxer (from [employer]) for low back/coccyx pain. Patient noted to be bradycardic in ED with HR going down to 40s. SINUS BRADYCARDIA Patient is known to have chronic resting bradycardia and hx of SVT, scheduled for Ablation next week per EP. -Symptoms at presentation less likely to be secondary to bradycardia and likely related to side effects from medications -Tele- HR down to 40s but mainly in 50s, few short salves of SVT -Continue with metoprolol 12.5 mg PO BID per cardiology, but discontinue it post ablation -Echo- pending -Cardiology on board DIZZINESS/ NAUSEA/VOMITING- Resolved Likely related to medication - muscle relaxer and ultram from [employer]. 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 DVT PROPHYLAXIS: Sq Lovenox CODE STATUS: FULL CODE DISPO:observation status Probable discharge in evening, pending echo Vital Signs: Date Time Temp Pulse Resp B/P Pulse Ox O2 Delivery O2 Flow Rate FiO2 12/17/16 12:00 Room Air 12/17/16 11:56 36.9 57 18 124/65 92 Room Air 12/17/16 08:00 Room Air 12/17/16 07:50 36.7 50 18 147/80 95 Room Air 12/17/16 05:23 36.7 58 16 133/75 94 Room Air 12/17/16 04:00 Room Air 12/17/16 00:00 96 Room Air 12/16/16 23:17 36.6 50 16 150/76 95 Room Air 12/16/16 21:00 36.9 43 16 144/77 99 Room Air 12/16/16 20:15 47 16 148/73 96 Room Air 12/16/16 20:09 48 12/16/16 19:00 49 18 166/81 95 Room Air 12/16/16 18:18 46 18 161/72 97 Room Air 12/16/16 17:28 40 16 147/71 100 Room Air 12/16/16 17:00 49 16 136/77 100 Nasal Cannula 2.0 12/16/16 16:50 96 Nasal Cannula 2.0 12/16/16 16:40 Room Air 12/16/16 16:37 46 16 159/79 12/16/16 16:33 44 12/16/16 16:00 36.3 56 16 138/76 98 Lab Results: Results Past 24 Hours Test 12/16/16 16:40 12/16/16 16:47 12/16/16 22:25 12/17/16 04:57 Range/Units White Blood Count 3.91 5.07 4.8-10.8 K/uL Red Blood Count 4.39 4.07 4.2-5.4 M/uL Hemoglobin 13.6 12.2 12.0-16.0 g/dL Hematocrit 38.1 35.5 37-47 % Mean Corpuscular Volume 86.8 87.2 80-100 fL Mean Corpuscular Hemoglobin 31.0 30.0 25-34 pg Mean Corpuscular Hemoglobin Concent 35.7 34.4 32-36 g/dl Platelet Count 191 194 130-400 K/uL Mean Platelet Volume 10.1 10.3 7.4-10.4 fL Neutrophils (%) (Auto) 60.1 % Lymphocytes (%) (Auto) 29.9 % Monocytes (%) (Auto) 8.7 % Eosinophils (%) (Auto) 0.5 % Basophils (%) (Auto) 0.5 % Neutrophils # (Auto) 2.35 1.4-6.5 K/uL Lymphocytes # (Auto) 1.17 1.2-3.4 K/uL Monocytes # (Auto) 0.34 0.11-0.59 K/uL Eosinophils # (Auto) 0.02 0-0.5 K/uL Basophils # (Auto) 0.02 0-0.2 K/uL RDW Standard Deviation 38.0 39.2 36.4-46.3 fL RDW Coefficient of Variation 11.9 12.1 11.5-14.5 % Immature Granulocyte % (Auto) 0.3 % Immature Granulocyte # (Auto) 0.01 0.00-0.02 K/uL Prothrombin Time 10.8 9.0-12.0 SECONDS Prothromb Time International Ratio 1.0 0.9-1.1 Activated Partial Thromboplast Time 23.7 21.0-31.0 SECONDS Partial Thromboplastin Ratio 0.9 Sodium Level 141 143 136-145 mmol/L Potassium Level 3.5 3.7 3.5-5.1 mmol/L Chloride Level 104 109 98-107 mmol/L Carbon Dioxide Level 26 27 21-32 mmol/L Anion Gap 11.0 7.0 3-11 mmol/L Blood Urea Nitrogen 15 12 7-18 mg/dl Creatinine 0.65 0.64 0.60-1.20 mg/dl Est Creatinine Clear Calc Drug Dose 75.5 76.7 ml/min Estimated GFR () 114.2 114.8 Estimated GFR (Non- 98.6 99.1 BUN/Creatinine Ratio 22.3 18.7 10-20 Random Glucose 117 90 70-99 mg/dl Calcium Level 8.8 7.8 8.5-10.1 mg/dl Magnesium Level 2.4 2.3 1.8-2.4 mg/dl Thyroid Stimulating Hormone (TSH) 1.550 0.300-4.500 uIu/ml Free Thyroxine 1.16 0.80-1.60 ng/dl Lyme Disease IgG Antibody NEG NEG Lyme Disease IgM Antibody NEG NEG Bedside Troponin I 0.000 0-0.045 ng/ml Total Creatine Kinase 63 55 26-192 U/L Creatine Kinase MB 0.6 < 0.5 0.5-3.6 ng/ml Creatine Kinase MB Ratio 1.0 0-3.0 Troponin I < 0.015 < 0.015 0-0.045 ng/ml Triglycerides Level 82 0-150 mg/dl Cholesterol Level 175 0-200 mg/dl HDL Cholesterol 55 mg/dl LDL Cholesterol, Calculated 104 mg/dl VLDL Cholesterol, Calculated 16 mg/dl Cholesterol/HDL Ratio 3.2 Test 12/17/16 07:41 12/17/16 11:43 Range/Units Bedside Glucose 84 98 70-90 mg/dl
[2016-12-17 15:00] VITALS: BP 124/75; PULSE 50; TEMP 37.2; O2SAT 93
--- NOTE | 2016-12-17 16:46 | Discharge Instructions ---
Discharge Instructions Admission Reason for Admission: Dizziness,Sinus Bradycardia Discharge Discharge Diagnosis / Problem: 1. Dizzines/Nausea/Vomiting likely medication side effect 2. Sinus bradycar Discharge Goals Goal(s): Diagnostic testing, Therapeutic intervention Activity Recommendations Activity Limitations: resume your previous activity . Instructions / Follow-Up Instructions / Follow-Up No changes in medications recommended FOLLOW UP 1. Dr Allen on 12/22/16 at 11:20 AM 2. Follow up with cardiology /[employer]er as scheduled Current Hospital Diet Patient's current hospital diet: AHA Diet (Heart Healthy) Discharge Diet Recommended Diet: AHA Diet (Heart Healthy) Pending Studies Studies pending at discharge: no Laboratory Results Lipid Panel Test 12/17/16 04:57 Range/Units Triglycerides Level 82 0-150 mg/dl Cholesterol Level 175 0-200 mg/dl HDL Cholesterol 55 mg/dl Cholesterol/HDL Ratio 3.2 LDL Cholesterol, Calculated 104 mg/dl Medical Emergencies . Who to Call and When: Medical Emergencies: If at any time you feel your situation is an emergency, please call 911 immediately. . Non-Emergent Contact Non-Emergency issues call your: Primary Care Provider . . "Provider Documentation" section prepared by Gifty Lira. VTE Core Measure Inpt VTE Proph given/why not?: Enoxaparin (Lovenox)SQ
--- NOTE | 2016-12-17 16:50 | Discharge Summary ---
Discharge Summary Date of Service Dec 17, 2016. Discharge Summary Admission Date: Dec 16, 2016 at 19:08 Discharge Date: Dec 17, 2016 Discharge Disposition: Home Principal Diagnosis: 1. Dizziness/Nausea/Vomiting likely related to medication side effect 2. Sinus bradycardia 3. Hx of SVT Procedures: cafeteria monitor Serial EKG Serial troponin CXR Lumbar x ray Coccyx x ray Pelvis x ray Consultations: Cardiology, Dr Winter Pending Studies/Follow-Up: Instructions / Follow-Up No changes in medications recommended FOLLOW UP 1. Dr Allen on 12/22/16 at 11:20 AM 2. Follow up with cardiology /Market Risk Analyst as scheduled Medication Reconciliation Continued Medications: Biotin (Biotin) 2,500 Mcg Cap 2500 MCG PO DAILY Metoprolol Tartrate (Lopressor) (Lopressor) 25 Mg Tab 12.5 MG PO BID, TAB Multivitamin (Multivitamin) Tab 1 TABLET PO DAILY, TAB [place]-3 Fatty Acids ([place] 3) 1 Cap Cap 1 CAP PO DAILY Admission Information HPI (per Admitting provider): Patient seen and examined. 56 year old female with PMHx of SVT presents to the ED complaining of dizziness x 1 day. Patient reports that she had a mechanical fall about a week ago and since then has had sharp severe tailbone pain. She reports she has been taking ibuprofen for this but last night that did not help with the pain so she took tramadol and a muscle relaxer. Shortly after she started to feel dizzy. She reports this was worse upon standing but she has been able to walk without any issues and does not need to hold on to anything for balance. She reports she also felt her heart fluttering and when this happens she gets some chest pressure. Today she woke up and still had some dizziness as well as nausea and 3 episodes of vomiting. She states that she feels like she does after taking a long car ride. She denies fevers, chills, head trauma, LOC, URI symptoms, tinnitus, vision changes, chest pain, SOB, diarrhea, dysuria, calf pain and edema. Patient has a history of SVT and is on metoprolol d/t sinus bradycardia the BB is very low dose but the patient has multiple episodes of SVT. She sees Dr. Briseno for SVT. She was seen in this ED last week for SVT and received adenosine. In the ED today patient was bradycardic around 40, BP was mildly elevated, Darryl were negative, EKG was without block, TSH was normal. She received IVFs, and Zofran and reports feeling a little better. She will be observed for further workup and treatment. Physical Exam (per Admitting): General Appearance: + pertinent finding Head: normocephalic, atraumatic Eyes: PERRL, EOMI, sclerae normal, + pertinent finding ENT: hearing grossly normal, pharynx normal Neck: supple, no JVD, trachea midline Respiratory/Chest: chest non-tender, lungs clear, normal breath sounds, no respiratory distress, no accessory muscle use Cardiovascular: no edema, no gallop, no JVD, no murmur, normal peripheral pulses, + bradycardia Abdomen/GI: normal bowel sounds, non tender, soft Back: normal inspection, no muscle spasm Extremities/Musculoskelatal: no calf tenderness, normal capillary refill, no pedal edema Neurologic/Psych: + pertinent finding Skin: normal color, warm/dry, no rash Lymphatic: no adenopathy Hospital Course 56 year old female with history of Chronic resting bradycardia/ SVT presents to the ED complaining of dizziness, nausea, vomiting, since last night after taking tramadol and a muscle relaxer (from [employer]) for low back/coccyx pain. Patient noted to be bradycardic in ED with HR going down to 40s. SINUS BRADYCARDIA Patient is known to have chronic resting bradycardia and hx of SVT, scheduled for Ablation next week per EP. -Symptoms at presentation less likely to be secondary to bradycardia and likely related to side effects from medications -Tele- HR down to 40s but mainly in 50s, few short salves of SVT -Continue with metoprolol 12.5 mg PO BID per cardiology, but discontinue it post ablation -Cardiology on board- cleared for discharge per discussion with Dr Winter DIZZINESS/ NAUSEA/VOMITING- Resolved Likely related to medication - muscle relaxer and ultram from [employer] (symptoms started 2 hours post medication intake and resolved spontaneously within hours) . 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 Discharge Instructions Discharge Diagnosis / Problem: 1. Dizzines/Nausea/Vomiting likely medication side effect 2. Sinus bradycar Discharge Goals Goal(s): Diagnostic testing, Therapeutic intervention Activity Recommendations Activity Limitations: resume your previous activity . Instructions / Follow-Up Instructions / Follow-Up No changes in medications recommended FOLLOW UP 1. Dr Allen on 12/22/16 at 11:20 AM 2. Follow up with cardiology /Market Risk Analyst as scheduled Current Hospital Diet Patient's current hospital diet: AHA Diet (Heart Healthy) Discharge Diet Recommended Diet: AHA Diet (Heart Healthy) Pending Studies Studies pending at discharge: no Laboratory Results Lipid Panel Test 12/17/16 04:57 Range/Units Triglycerides Level 82 0-150 mg/dl Cholesterol Level 175 0-200 mg/dl HDL Cholesterol 55 mg/dl Cholesterol/HDL Ratio 3.2 LDL Cholesterol, Calculated 104 mg/dl Medical Emergencies . Who to Call and When: Medical Emergencies: If at any time you feel your situation is an emergency, please call 911 immediately. . Non-Emergent Contact Non-Emergency issues call your: Primary Care Provider . . "Provider Documentation" section prepared by Gifty Lira. VTE Core Measure Inpt VTE Proph given/why not?: Enoxaparin (Lovenox)SQ
[2016-12-17 16:52] VITALS: BP 124/75; PULSE 50; TEMP 37.2; O2SAT 93
[2016-12-17] MEDS ORDERED: METOPROLOL TARTRATE 25 MG TAB PO SCH (21:00)
== END 2016-12-17 17:30 | disposition home or self-care (01) ==
LOC: ENRESERVTM → ENRESERVDT → C.EDB 15:54 → C.MED 19:08
PROVIDERS: ADMIT Internal Medicine; ATTEND Internal Medicine
DX: R42 Dizziness and giddiness (principal); R00.1 Bradycardia, unspecified; I47.1 Supraventricular tachycardia; Z90.49 Acquired absence of other specified parts of digestive tract; Z86.010 Personal history of colon polyps; Z83.3 Family history of diabetes mellitus; Z82.49 Family history of ischemic heart disease and other diseases of the circulatory system